=== PATIENT | female | born 1995 | race Caucasian/White ===

== ENCOUNTER 2017-03-23 11:27 | Emergency (ER) | payer OTHER ==
[~2017-03-23] VITALS: Ht 160 cm; Wt 83.9 kg
[2017-03-23 12:07] LABS: URINE BILIRUBIN NEGATIVE (Negative); URINE BLOOD 2+ (Negative); URINE COLOR YELLOW; URINE GLUCOSE-RANDOM* NEGATIVE (Negative); URINE KETONES NEGATIVE (Negative); URINE NITRITE NEGATIVE (Negative); URINE PROTEIN (DIPSTICK) TRACE (Negative); URINE SPECIFIC GRAVITY 1.025 (1.003-1.035); URINE UROBILINOGEN 0.2 E.U./dl (0.2-1.0)
[2017-03-23 12:50] LABS: CASTS None Seen /LPF (None Seen); CRYSTALS None Seen /LPF (None Seen); SQUAMOUS >10 Many /LPF (0-3)
[2017-03-23 12:51] LABS: BACTERIA None Seen /HPF (None Seen); URINE RBC 0-2 Rare /HPF (0-2); URINE WBC 0-5 Rare /HPF (0-5)
[2017-03-23 13:33] LABS: ABSOLUTE NEUTROPHILS 4.7 thou/uL (1.4-8.2); BASOPHILS 0.7 % (0.0-2.0); EOSINOPHILS 2.8 % (0.0-3.0); HEMATOCRIT 36.4 % (37.0-47.0); HEMOGLOBIN 12.4 gm/dL (12.0-15.0); LYMPHOCYTES 24.7 % (24.0-44.0); MCH 29.6 pg (26.0-34.0); MONOCYTES 7.2 % (1.0-8.0); PLATELET COUNT 206 thou/uL (150-400); POLYS 64.6 % (36.0-66.0); RBC 4.18 mil/uL (4.20-5.00); RDW 14.7 % (10.5-14.5); WBC 7.3 thou/uL (4.0-11.0)
[2017-03-23 13:34] LABS: MANUAL DIFF NO
[2017-03-23 13:41] LABS: CALCIUM 9.4 mg/dL (8.5-10.1); CREATININE 0.6 mg/dL (0.6-1.0); POTASSIUM 3.9 mmol/L (3.5-5.1)
[2017-03-23 16:42] VITALS: BP 103/69
== END 2017-03-23 17:59 | disposition home or self-care (01) ==
LOC: ER 11:27
PROVIDERS: Physician Assistant
DX: O03.1 Delayed or excessive hemorrhage following incomplete spontaneous abortion (principal); F17.200 Nicotine dependence, unspecified, uncomplicated; F10.99 Alcohol use, unspecified with unspecified alcohol-induced disorder; Z88.1 Allergy status to other antibiotic agents